=== PATIENT | male | born 1960 | race Caucasian/White ===

== ENCOUNTER → 2016-03-30 | Outpatient (CLI) | payer OTHER ==
--- NOTE | 2016-03-30 10:06 | DI ---
HISTORY: Left clavicle pain. FINDINGS: No displaced clavicular fractures noted. However, the posterior left fifth and sixth ribs appear slightly irregular, and this could be due to prior surgery or trauma. IMPRESSION: 1. No acute fracture identified.
== END ==
LOC: MOB RAD 08:58
DX: M25.512 Pain in left shoulder (principal); M54.2 Cervicalgia; M89.8X1 Other specified disorders of bone, shoulder; W00.0XXA Fall on same level due to ice and snow, initial encounter
CPT/HCPCS: 73000; 99213; G0463

== ENCOUNTER → 2016-04-07 | Outpatient (CLI) | payer OTHER | LOC: MMPC 11:11 | PROVIDERS: ATTEND Internal Medicine | DX: N52.9 Male erectile dysfunction, unspecified (principal) | CPT/HCPCS: G0463; J1071 ==

== ENCOUNTER → 2016-04-13 | Outpatient (CLI) | payer OTHER | LOC: LAB 07:57 | PROVIDERS: ATTEND Internal Medicine | DX: E29.1 Testicular hypofunction (principal) | CPT/HCPCS: 36415; 84403 ==

== ENCOUNTER → 2016-05-05 | Outpatient (CLI) | payer OTHER | LOC: MMPC 11:11 | PROVIDERS: ATTEND Internal Medicine | DX: E29.1 Testicular hypofunction (principal) | CPT/HCPCS: G0463; J1071 ==

== ENCOUNTER → 2016-05-19 | Outpatient (CLI) | payer OTHER | LOC: MMPC 11:11 | PROVIDERS: ATTEND Internal Medicine | DX: E29.1 Testicular hypofunction (principal) | CPT/HCPCS: G0463; J1071 ==

== ENCOUNTER → 2016-06-02 | Outpatient (CLI) | payer OTHER | LOC: MMPC 06-03 11:11 | PROVIDERS: ATTEND Internal Medicine | DX: E29.1 Testicular hypofunction (principal) | CPT/HCPCS: G0463 ×2; J1071 ==

== ENCOUNTER → 2016-06-16 | Outpatient (CLI) | payer OTHER | LOC: MMPC 11:11 | PROVIDERS: ATTEND Internal Medicine | DX: N52.9 Male erectile dysfunction, unspecified (principal) | CPT/HCPCS: G0463; J1071 ==

== ENCOUNTER → 2016-06-30 | Outpatient (CLI) | payer OTHER | LOC: MMPC 11:11 | PROVIDERS: ATTEND Internal Medicine | DX: E29.1 Testicular hypofunction (principal) | CPT/HCPCS: G0463; J1071 ==

== ENCOUNTER → 2016-07-06 | Outpatient (CLI) | payer OTHER ==
--- NOTE | 2016-07-06 11:23 | DI ---
RIGHT KNEE, 07/06/2016 10:28 AM: Clinical History: Right knee injury. Previous Exam: None at this facility. 3 views are submitted. There is a small suprapatellar effusion. No fracture or dislocation is identif ied. Reading: No fracture or dislocation is present.
== END ==
LOC: MOB LAB 10:32
PROVIDERS: ATTEND Internal Medicine
DX: S89.91XA Unspecified injury of right lower leg, initial encounter (principal); M25.461 Effusion, right knee; W18.39XA Other fall on same level, initial encounter
CPT/HCPCS: 73562; 99214

== ENCOUNTER → 2016-07-21 | Outpatient (CLI) | payer OTHER | LOC: MMPC 11:11 | PROVIDERS: ATTEND Internal Medicine | DX: E29.1 Testicular hypofunction (principal) | CPT/HCPCS: G0463; J1071 ==

== ENCOUNTER → 2016-08-04 | Outpatient (CLI) | payer OTHER | LOC: MMPC 11:11 | PROVIDERS: ATTEND Internal Medicine | DX: E29.1 Testicular hypofunction (principal) | CPT/HCPCS: G0463; J1071 ==

== ENCOUNTER → 2016-08-07 | Outpatient (CLI) | payer OTHER ==
[2016-08-07 08:28] LABS: BASOPHILS # (AUTO) 0.03 10*3/UL; BASOPHILS % (AUTO) 0.8 % (0-1); EOSINOPHILS # (AUTO) 0.13 10*3/UL; EOSINOPHILS % (AUTO) 3.4 % (0-8); HEMATOCRIT 49.3 % (42.0-52.0); HEMOGLOBIN 16.3 g/dL (14.0-18.0); LYMPHOCYTES # (AUTO) 0.88 10*3/uL; MEAN CORPUSCULAR HEMOGLOBIN 28.5 PG (27-31); MEAN CORPUSCULAR HGB CONC 33.1 g/dL (33-37); MEAN CORPUSCULAR VOLUME 86.3 FL (80-90); MEAN PLATELET VOLUME 9.9 FL (7.4-12.2); MONOCYTES # (AUTO) 0.64 10*3/UL (0.3-0.8); MONOCYTES % (AUTO) 16.9 % (5-15); NEUTROPHILS # (AUTO) 2.09 10*3/UL; NEUTROPHILS % (AUTO) 55.3 % (50-80); RED BLOOD COUNT 5.71 10^6/uL (4.70-6.10)
[2016-08-07 08:30] LABS: PLATELET MORPHOLOGY COMMENT NORMAL MORPHOLOGY (NORM); RBC MORPHOLOGY COMMENT NORMAL MORPHOLOGY (NORM); WBC MORPHOLOGY COMMENT NORMAL MORPHOLOGY (NORM)
[2016-08-07 08:46] LABS: BLOOD UREA NITROGEN 20 mg/dL (7-22); BUN/CREATININE RATIO 16.66 (6-20); CALCIUM 8.4 mg/dL (8.7-10.7); EST GLOMERULAR FILTRATION > 60 (>60 ml/min/1.73m(2))
[2016-08-07 09:06] LABS: ERYTHROCYTE SEDIMENTATION RATE 1 MM/HR (0-15)
== END ==
LOC: LAB 08:13
PROVIDERS: ATTEND Psychiatry & Neurology Neurology
DX: R53.83 Other fatigue (principal); F03.90 Unspecified dementia, unspecified severity, without behavioral disturbance, psychotic disturbance, mood disturbance, and anxiety
CPT/HCPCS: 36415; 80053; 82607; 83921; 84443; 85025; 85652

== ENCOUNTER → 2016-08-25 | Outpatient (CLI) | payer OTHER | LOC: MMPC 11:11 | PROVIDERS: ATTEND Internal Medicine | DX: E53.8 Deficiency of other specified B group vitamins (principal); E29.1 Testicular hypofunction | CPT/HCPCS: G0463; J1071; J3420 ==

== ENCOUNTER → 2016-09-01 | Outpatient (CLI) | payer OTHER | LOC: MMPC 11:11 | PROVIDERS: ATTEND Internal Medicine | DX: E53.8 Deficiency of other specified B group vitamins (principal) | CPT/HCPCS: G0463; J3420 ==

== ENCOUNTER → 2016-09-08 | Outpatient (CLI) | payer OTHER | LOC: MMPC 11:11 | PROVIDERS: ATTEND Internal Medicine | DX: E53.8 Deficiency of other specified B group vitamins (principal); E29.1 Testicular hypofunction; N52.9 Male erectile dysfunction, unspecified | CPT/HCPCS: G0463; J1071; J3420 ==

== ENCOUNTER → 2016-09-18 | Outpatient (CLI) | payer OTHER | LOC: MMPC 11:11 | PROVIDERS: ATTEND Internal Medicine | DX: R79.89 Other specified abnormal findings of blood chemistry (principal) | CPT/HCPCS: G0463; J3420 ==

== ENCOUNTER → 2016-09-22 | Outpatient (CLI) | payer OTHER | LOC: MMPC 11:11 | PROVIDERS: ATTEND Internal Medicine | DX: E29.1 Testicular hypofunction (principal) | CPT/HCPCS: G0463; J1071 ==

== ENCOUNTER → 2016-10-06 | Outpatient (CLI) | payer OTHER | LOC: MMPC 11:11 | PROVIDERS: ATTEND Internal Medicine | DX: E29.1 Testicular hypofunction (principal) | CPT/HCPCS: G0463; J1071 ==

== ENCOUNTER → 2016-10-20 | Outpatient (CLI) | payer OTHER | LOC: MMPC 11:11 | PROVIDERS: ATTEND Internal Medicine | DX: E29.1 Testicular hypofunction (principal); E53.8 Deficiency of other specified B group vitamins | CPT/HCPCS: G0463; J1071; J3420 ==